=== PATIENT | female | born 1975 | race Caucasian/White ===

== ENCOUNTER → 2017-02-21 | Outpatient (CLI) | payer OTHER ==
--- NOTE | 2017-02-21 12:23 | XR ---
EXAMINATION TYPE: XR elbow complete RT DATE OF EXAM: 02/21/2017 COMPARISON: NONE HISTORY: Pain FINDINGS: Three views of the elbow demonstrate no pathologic joint effusion. The osseous structures are intact . There is no acute fracture or dislocation. IMPRESSION: 1. No acute fracture or dislocation. If symptoms persist follow-up study in 7 to 10 days could be ob tained.
--- NOTE | 2017-02-21 12:29 | XR ---
EXAMINATION TYPE: XR forearm RT DATE OF EXAM: 02/21/2017 COMPARISON: NONE HISTORY: Pain Two views of the forearm demonstrate that the osseous structures appear to be intact and the joint sp aces appear to be preserved. There is no acute fracture or dislocation. IMPRESSION: 1. No acute fracture or dislocation
== END ==
LOC: RADXRMAIN 11:39
PROVIDERS: ATTEND Emergency Medicine
DX: S50.01XA Contusion of right elbow, initial encounter (principal); S50.11XA Contusion of right forearm, initial encounter; W00.0XXA Fall on same level due to ice and snow, initial encounter

== ENCOUNTER → 2018-11-05 | Outpatient (CLI) | payer OTHER ==
--- NOTE | 2018-11-05 09:11 | MM ---
Reason for exam: additional evaluation requested from prior study. Last mammogram was performed 3 years and 1 month ago. History: Family history of breast cancer in paternal aunt at age 50. Benign excisional biopsy of both breasts, February 2015. Benign US biopsy breast VAD LT of the left breast, February 09, 2015. Benign US biopsy breast VAD RT of the right breast, February 09, 2015. Took hormonal contraceptives for 11 years. Physical Findings: Nurse did not find any significant physical abnormalities on exam. MG 3D Diag Mammo W/Cad SAGAR Bilateral CC and MLO view(s) were taken. Prior study comparison: October 01, 2015, bilateral MG 3d diag mammo w/cad SAGAR. February 09, 2015, bilateral MG diagnostic [facility] BI wo CAD. The breast tissue is heterogeneously dense. This may lower the sensitivity of mammography. Post excisional changes particularly apparent of the left. No significant new findings when compared with previous films. These results were verbally communicated with the patient and result sheet given to the patient on 11/05/18. ASSESSMENT: Benign, BI-RAD 2 RECOMMENDATION: Routine screening mammogram of both breasts in 1 year.
== END | disposition home or self-care (01) ==
LOC: LABWHC1 07:47
PROVIDERS: ATTEND Family Medicine
DX: R92.8 Other abnormal and inconclusive findings on diagnostic imaging of breast (principal)
CPT/HCPCS: 77062; 77066

== ENCOUNTER → 2023-01-31 | Outpatient (CLI) | payer BC ==
--- NOTE | 2023-02-01 08:43 | MM ---
Reason for Exam: Screening (asymptomatic). Last mammogram was performed 4 year(s) and 3 month(s) ago. Patient History: Menarche at age 12. First Full-Term at age 29. Patient has history of breast feeding. Hormonal Contraceptives for 11 years until age 26. 02/2015, Bilateral Benign Excisional Biopsy. 02/09/2015, Benign Core Biopsy on the right side. 02/09/2015, Benign Core Biopsy on the left side. Paternal aunt had breast cancer, age 50. Last menstrual period: 01/30/2023 Risk Values: Sulema 5 year model risk: 1.9%. NCI Lifetime model risk: 15.3%. Prior Study Comparison: 02/09/2015 Bilateral Diagnostic Mammogram, [facility]. 10/01/2015 Bilateral Diagnostic Mammogram, [facility]. 11/05/2018 Bilateral Diagnostic Mammogram, [facility]. Tissue Density: The breast tissue is heterogeneously dense. This may lower the sensitivity of mammography. Findings: Analyzed By CAD. There is no suspicious group of microcalcifications or new suspicious mass in either breast. Overall Assessment: Benign, BI-RAD 2 Management: Screening Mammogram of both breasts in 1 year. . Patient should continue monthly self-breast exams. A clinical breast exam by your physician is recommended on an annual basis. This exam should not preclude additional follow-up of suspicious palpable abnormalities. Note on Sulema scores and lifetime risk: 1. A Sulema score greater than 3% is considered moderate risk. If this is the case, consider specialist referral to assess eligibility for a risk reducing agent. 2. If overall lifetime risk for the development of breast cancer is 20% or higher, the patient may qualify for future screening with alternating mammogram and breast MRI. Electronically signed and approved by: Shar Heredia M.D. Radiologis
== END | disposition home or self-care (01) ==
LOC: RADMAMWWP 07:00
PROVIDERS: ATTEND Family Medicine
DX: Z12.31 Encounter for screening mammogram for malignant neoplasm of breast (principal); Z80.3 Family history of malignant neoplasm of breast
CPT/HCPCS: 77063; 77067

== ENCOUNTER → 2023-04-06 | Outpatient (CLI) | payer BC ==
--- NOTE | 2023-04-06 09:27 | CT ---
EXAMINATION TYPE: CT sinus wo con DATE OF EXAM: 04/06/2023 COMPARISON: None HISTORY: Chronic maxillary sinusitis CT DLP: 519.10 mGycm CONTRAST: 0 mL of Isovue 300 The paranasal sinuses are examined in the axial plane at 2 mm thick sections. Reconstructed images i n the coronal plane were obtained. Findings: There is near complete opacification of the maxillary sinuses. The ostiomeatal units are obstructed. Mucosal thickenings throughout ethmoid air cells. There is an air-fluid level within the left sphen oid sinus. Sphenoid sinuses are otherwise clear. There is opacification of the inferior right fronta l sinuses. The left frontal sinus which is slightly hypoplastic is clear. The septum is evaluated. There is septal deviation to the right. A right septal spur is present. IMPRESSION: 1. Opacification through the maxillary, ethmoid and right frontal sinuses. Correlate for chronic sin usitis. 2. There is an air-fluid level within the right sphenoid sinus. Acute sinusitis of the sphenoid sinu s may be present. 3. Right septal deviation. 4. Structures and of the ostiomeatal units bilaterally
== END | disposition home or self-care (01) ==
LOC: RADCTMAIN 07:52
PROVIDERS: ATTEND Otolaryngology
DX: J34.2 Deviated nasal septum (principal); J34.89 Other specified disorders of nose and nasal sinuses; J32.0 Chronic maxillary sinusitis
CPT/HCPCS: 70486

== ENCOUNTER → 2023-10-02 | Outpatient (CLI) | payer BC ==
[~2023-10-02] MED LIST: SODIUM CHLORIDE 0.9% 50 ML BAG IV ONE; SODIUM CHLORIDE 0.9% 500 ML BAG ONE
== END ==
LOC: PROCWHC3 11:30
PROVIDERS: ATTEND Family Medicine
DX: D50.9 Iron deficiency anemia, unspecified (principal)
CPT/HCPCS: 96365

== ENCOUNTER → 2023-11-22 | Outpatient (CLI) | payer BC ==
--- NOTE | 2023-11-22 15:38 | US ---
EXAMINATION TYPE: US pelvic complete DATE OF EXAM: 11/22/2023 COMPARISON: NONE CLINICAL INDICATION: Female, 48 years old with history of D50.9 IRON DEFICIENCY; Abnormal lab. TECHNIQUE: . Transabdominal grayscale, color Doppler and spectral Doppler sonographic images of the pelvis were acquired. Transvaginal sonographic images were medically necessary to better assess the following anatomy: FINDINGS: Date of LMP: 11/15/2023, G2G2 EXAM MEASUREMENTS: Uterus: 9.9 x 2.2 x 1.8 cm Endometrial Stripe: 0.9 cm Right Ovary: 3.0 x 2.2 x 1.8 cm Left Ovary: 2.2 x 1.8 x 1.6 cm 1. Uterus: Anteverted Left fundal hypoechoic lesion = 2.3 x 3.0 x 2.6 cm 2. Endometrium: wnl 3. Right Ovary: follicles seen 4. Left Ovary: follicles seen 5. Bilateral Adnexa: wnl 6. Posterior cul-de-sac: no free fluid IMPRESSION: 1. There is a 2.6 cm lesion within the uterine fundus is nonspecific but most typical of a small fibr oid. Correlate clinically. 2. Endometrium measures 9 mm correlate with phase of menstrual cycle. [facility], , 11/22/2023 3:35 PM
== END | disposition home or self-care (01) ==
LOC: RADUSWWP 15:00
PROVIDERS: ATTEND Family Medicine
DX: D50.9 Iron deficiency anemia, unspecified
CPT/HCPCS: 76856

== ENCOUNTER → 2024-02-13 | Outpatient (CLI) | payer BC ==
[2024-02-13 20:57] LABS: Alternaria alternata IgE <0.10 kU/L; Aspergillus fumagatus IgE <0.10 kU/L; Birch IgE <0.10 kU/L; Cat Epith & Dander IgE <0.10 kU/L; Cladosporian herbarum IgE <0.10 kU/L; Cockroach IgE <0.10 kU/L; Dermato. farinae IgE <0.10 kU/L; Dog Dander IgE 0.42 kU/L; Elm IgE <0.10 kU/L; Maple (Box Elder) IgE <0.10 kU/L; Oak IgE <0.10 kU/L; Ragweed,Common IgE <0.10 kU/L; Red Top (Bentgrass) IgE <0.10 kU/L
== END | disposition home or self-care (01) ==
LOC: LABWHC1 11:33
PROVIDERS: ATTEND Internal Medicine Critical Care Medicine
DX: J45.50 Severe persistent asthma, uncomplicated (principal)
CPT/HCPCS: 36415; 82785; 85008; 86003